=== PATIENT | female | born 1950 | race Two or more races ===

== ENCOUNTER 2023-09-29 17:01 | Emergency (ER) | payer MEDICARE, MEDICAID, SELFPAY ==
[2023-09-29] VITALS (21 sets, daily range): BP systolic 150–166; BP diastolic 88–98; PULSE 58–78; RESP 9–21; TEMP 36.9; O2SAT 91–98; BMI 31.2
--- NOTE | 2023-09-29 17:12 | ECG_ITS ---
[facility] Test Date: 2023-09-29 Pat Name: AKUA SPARROW Department: Room: - Gender: Female Guest Services: : 1950 Requested By: Nelida Gonzales Order Number: [id number] Reading MD: LA LIZAMA Measurements Intervals [place] Rate: 72 P: 60 TX: 156 QRS: -30 QRSD: 82 T: 55 QT: 400 QTc: 425 Interpretive Statements 1100 Sinus rhythm with occasional ectopic premature complexes (Unreliable analysis due to noise) 7202 Moderate left axis deviation 0102 ARTIFACT PRESENT 9140 abnormal rhythm ECG Compared to ECG 11/17/2020 20:23:35 Left-axis deviation now present Electronically Signed On 09-30-2023 6:51:40 EST by LA LIZAMA
--- NOTE | 2023-09-29 17:23 | ED.GENADUL1 ---
HPI - General Adult General Chief complaint: Chest Pain Stated complaint: Chest pain Time Seen by Provider: 09/29/23 17:04 Source: patient Mode of arrival: walk-in Limitations: language barrier History of Present Illness HPI narrative: Patient is a 73-year-old female who presents to the emergency department with her son for the evaluation of multiple complaints. Patient states for the last week she has had a sense of indigestion and epigastric discomfort. She states in the last 3 to 4 days she has had pressure in her chest, left arm pain, cough, weakness, shortness of breath. She has had no vomiting or diarrhea. No objective fevers. She has no sputum production. No medications taken prior to arrival for symptoms. She did take a baby aspirin today. She denies any history of heart attack, stroke. Related Data Home Medications Medication Instructions Recorded Confirmed amlodipine 2.5 mg tablet 2.5 mg PO DAILY 09/29/23 09/29/23 atorvastatin 40 mg tablet 40 mg PO DAILY 09/29/23 09/29/23 famotidine 20 mg tablet 20 mg PO DAILY 09/29/23 09/29/23 levothyroxine 25 mcg tablet 25 mcg PO DAILY 09/29/23 09/29/23 metformin 500 mg tablet 500 mg PO DAILY 09/29/23 09/29/23 tizanidine 4 mg tablet 4 mg PO Q12H PRN pain 09/29/23 09/29/23 Previous Rx's Medication Instructions Recorded levofloxacin 750 mg tablet 750 mg PO DAILY 5 days #5 tabs 09/29/23 ondansetron 4 mg disintegrating 4 mg PO Q6H PRN nausea and 09/29/23 tablet vomiting #12 tabs sucralfate 1 gram tablet (Carafate) 1 g PO Q6H PRN abdominal pain #12 09/29/23 tabs Allergies Allergy/AdvReac Type Severity Reaction Status Date / Time No Known Drug Allergies Allergy Verified 09/29/23 17:06 Review of Systems ROS Constitutional Denies: fever or chills Eyes Denies: change in vision Ears, nose, mouth, and throat Denies: throat pain or nasal congestion Cardiovascular Reports: chest pain Respiratory Reports: shortness of breath and cough Gastrointestinal Reports: abdominal pain and nausea; Denies: vomiting or diarrhea Genitourinary Denies: painful urination Musculoskeletal Denies: back pain Integumentary/Breast Denies: rash Neurological Denies: headache PFSH PFSH Social History Smoking status: Never smoker Exam Narrative Exam Narrative: Gen.: Awake, alert, in no distress Head: Normocephalic, atraumatic ENT: Moist mucous membranes Respiratory: No respiratory distress, lungs clear bilaterally Cardio: Regular rate and rhythm Gastrointestinal: Abdomen is soft, nondistended and nontender to palpation Extremities: Moves extremities equally, no pedal edema Psych: Normal mood and affect Neuro: No focal neuro deficit Skin: Warm, dry, intact Constitutional Vital Signs, click to edit/add: Last Vital Signs Temp 98.4 F 09/29/23 17:08 Pulse 58 L 09/29/23 20:18 Resp 14 09/29/23 20:18 BP 166/88 H 09/29/23 18:54 Pulse Ox 95 09/29/23 20:18 O2 Del Method Room Air 09/29/23 20:18 Course Vital Signs Vital signs: Vital Signs Temperature 98.4 F 09/29/23 17:08 Pulse Rate 75 09/29/23 17:08 Respiratory Rate 16 09/29/23 17:08 Blood Pressure 150/98 H 09/29/23 17:08 Pulse Oximetry 97 09/29/23 17:08 Oxygen Delivery Method Room Air 09/29/23 17:08 Temperature 98.4 F 09/29/23 17:08 Pulse Rate 58 L 09/29/23 20:18 Respiratory Rate 14 09/29/23 20:18 Blood Pressure 166/88 H 09/29/23 18:54 Pulse Oximetry 95 09/29/23 20:18 Oxygen Delivery Method Room Air 09/29/23 20:18 Medical Decision Making [facility] Narrative Medical decision making narrative: Patient treated with IV fluids, aspirin, GI cocktail. She has no adriana chest pain in the ER and complains only of epigastric discomfort and minimal chest pressure. She maintains normal vital signs in the ER, chest x-ray shows mild bibasilar infiltrates compatible with pneumonia. Patient will be treated for community-acquired pneumonia. Suspect diaphragm irritation causing some of her discomfort. She was given a GI cocktail in the ER. She had no episodes of emesis, no difficulty breathing. Patient has had epigastric discomfort for 1 week with 3 to 4 days of chest pressure. She has no EKG changes and 2 normal troponins. She is comfortable with outpatient management of mild pneumonia. Son at bedside is also comfortable with this treatment. Medical Records Medical records reviewed: Yes I reviewed the patient's medical records Lab Data Lab results reviewed: Yes I reviewed the patient's lab results Labs: Lab Results 09/29/23 09/29/23 09/29/23 Range/Units 17:18 17:26 17:30 WBC 6.3 (4.0-11.0) 10^3/uL RBC 4.50 (4.20-5.40) 10^6/uL Hgb 13.3 (12.0-16.0) g/dL Hct 40.4 (36.0-48.0) % MCV 89.8 (81.0-99.0) fL MCH 29.6 (26.7-34.0) pg MCHC 32.9 (29.9-35.2) g/dL RDW 12.9 (11.0-15.0) % Plt Count 207 (150-450) 10^3/uL MPV 11.1 (9.5-13.5) fL Neut % (Auto) 52.4 (43.0-75.0) % Lymph % (Auto) 39.5 (20.5-60.0) % [place] % (Auto) 6.3 (1.7-12.0) % Eos % (Auto) 1.3 (0.9-7.0) % Baso % (Auto) 0.3 (0.2-2.0) % Neut # (Auto) 3.3 (1.4-6.5) 10^3/uL Lymph # (Auto) 2.5 (1.2-3.8) 10^3/uL [place] # (Auto) 0.4 (0.3-0.8) 10^3/uL Eos # (Auto) 0.1 (0.0-0.7) 10^3/uL Baso # (Auto) 0.0 (0.0-0.1) 10^3/uL Abs Immat Gran (auto) 0.01 (0.00-0.03) 10^3/uL Imm/Tot Granulo (auto) 0.2 (0.0-0.5) % PT 10.7 (9.0-11.6) sec INR 1.01 VBG pH 7.455 H (7.330-7.430) VBG pCO2 38.6 L (40.0-52.0) mmHg Sodium 139 (136-145) mmol/L Potassium 3.4 L (3.5-5.1) mmol/L Chloride 104 (98-107) mmol/L Carbon Dioxide 27.1 (21.0-32.0) mmol/L Anion Gap 11.3 BUN 10.0 (7.0-18.0) mg/dL Creatinine 0.73 (0.55-1.02) mg/dL Est GFR ( Amer) >60 (>=60) Est GFR (Non-Af Amer) >60 (>=60) BUN/Creatinine Ratio 13.7 Glucose 183 H (74-106) mg/dL Lactate 1.4 (0.4-2.0) mmol/L Calcium 9.8 (8.5-10.1) mg/dL Total Bilirubin 0.3 (0.2-1.0) mg/dL AST 22 (15-37) U/L ALT 45 (14-59) U/L Alkaline Phosphatase 126 H (46-116) U/L Troponin I High Sens 5.7 (4.0-51.3) pg/mL NT-Pro-B Natriuret Pep 28.0 (<=900.0) pg/mL Total Protein 8.1 (6.4-8.2) g/dL Albumin 4.1 (3.4-5.0) g/dL Globulin 4.0 g/dL Albumin/Globulin Ratio 1.0 Lipase 23.0 (16.0-77.0) U/L Adenovirus (PCR) Not detected (NOT DETECTE) C. pneumoniae DNA (PCR) Not detected (NOT DETECTE) Coronavirus Type OC43 Not detected (NOT DETECTE) Coronavirus Type HKU1 Not detected (NOT DETECTE) Coronavirus Type 229E Not detected (NOT DETECTE) Coronavirus Type NL63 Not detected (NOT DETECTE) Human Metapneumovir PCR Not detected (NOT DETECTE) M. pneumoniae (PCR) Not detected (NOT DETECTE) Parainfluenza PCR Not detected (NOT DETECTE) Parainfluenza 2 (PCR) Not detected (NOT DETECTE) Parainfluenza 3 (PCR) Not detected (NOT DETECTE) Parainfluenza 4 (PCR) Not detected (NOT DETECTE) RSV (RT-PCR) Not detected (NOT DETECTE) Entero/Rhino (PCR) Not detected (NOT DETECTE) SARS-CoV-2 (PCR) Not detected (NOT DETECTE) Bordetella pertussis (PCR) Not detected (NOT DETECTE) B parapertussis DNA PCR Not detected (NOT DETECTE) Influenza Type A (PCR) Not detected (NOT DETECTE) Influenza Type B (PCR) Not detected (NOT DETECTE) 09/29/23 Range/Units 19:24 WBC (4.0-11.0) 10^3/uL RBC (4.20-5.40) 10^6/uL Hgb (12.0-16.0) g/dL Hct (36.0-48.0) % MCV (81.0-99.0) fL MCH (26.7-34.0) pg MCHC (29.9-35.2) g/dL RDW (11.0-15.0) % Plt Count (150-450) 10^3/uL MPV (9.5-13.5) fL Neut % (Auto) (43.0-75.0) % Lymph % (Auto) (20.5-60.0) % [place] % (Auto) (1.7-12.0) % Eos % (Auto) (0.9-7.0) % Baso % (Auto) (0.2-2.0) % Neut # (Auto) (1.4-6.5) 10^3/uL Lymph # (Auto) (1.2-3.8) 10^3/uL [place] # (Auto) (0.3-0.8) 10^3/uL Eos # (Auto) (0.0-0.7) 10^3/uL Baso # (Auto) (0.0-0.1) 10^3/uL Abs Immat Gran (auto) (0.00-0.03) 10^3/uL Imm/Tot Granulo (auto) (0.0-0.5) % PT (9.0-11.6) sec INR VBG pH (7.330-7.430) VBG pCO2 (40.0-52.0) mmHg Sodium (136-145) mmol/L Potassium (3.5-5.1) mmol/L Chloride (98-107) mmol/L Carbon Dioxide (21.0-32.0) mmol/L Anion Gap BUN (7.0-18.0) mg/dL Creatinine (0.55-1.02) mg/dL Est GFR ( Amer) (>=60) Est GFR (Non-Af Amer) (>=60) BUN/Creatinine Ratio Glucose (74-106) mg/dL Lactate (0.4-2.0) mmol/L Calcium (8.5-10.1) mg/dL Total Bilirubin (0.2-1.0) mg/dL AST (15-37) U/L ALT (14-59) U/L Alkaline Phosphatase (46-116) U/L Troponin I High Sens 6.5 (4.0-51.3) pg/mL NT-Pro-B Natriuret Pep (<=900.0) pg/mL Total Protein (6.4-8.2) g/dL Albumin (3.4-5.0) g/dL Globulin g/dL Albumin/Globulin Ratio Lipase (16.0-77.0) U/L Adenovirus (PCR) (NOT DETECTE) C. pneumoniae DNA (PCR) (NOT DETECTE) Coronavirus Type OC43 (NOT DETECTE) Coronavirus Type HKU1 (NOT DETECTE) Coronavirus Type 229E (NOT DETECTE) Coronavirus Type NL63 (NOT DETECTE) Human Metapneumovir PCR (NOT DETECTE) M. pneumoniae (PCR) (NOT DETECTE) Parainfluenza PCR (NOT DETECTE) Parainfluenza 2 (PCR) (NOT DETECTE) Parainfluenza 3 (PCR) (NOT DETECTE) Parainfluenza 4 (PCR) (NOT DETECTE) RSV (RT-PCR) (NOT DETECTE) Entero/Rhino (PCR) (NOT DETECTE) SARS-CoV-2 (PCR) (NOT DETECTE) Bordetella pertussis (PCR) (NOT DETECTE) B parapertussis DNA PCR (NOT DETECTE) Influenza Type A (PCR) (NOT DETECTE) Influenza Type B (PCR) (NOT DETECTE) Imaging Data Chest x-ray: Radiologist's impression: ITS Impressions Chest X-Ray 09/29/23 17:55 IMPRESSION: Bibasilar opacification compatible with mild pneumonia in the setting of cough. Electronically authenticated by: JERRY SALINAS Date: 09/29/2023 18:16 ECG Data Attestation: I personally reviewed and interpreted this ECG as follows: (Normal sinus rhythm at a rate of 72, occasional PVC, no acute ST elevation or ectopy. Artifact noted. EKG reviewed by attending physician) Discharge Plan Discharge Chief Complaint: Chest Pain Clinical Impression: Weakness, Pneumonia Patient Disposition: Home, Self-Care Time of Disposition Decision: 20:04 Condition: Good Prescriptions / Home Meds: New levofloxacin 750 mg tablet 750 mg PO DAILY 5 Days Qty: 5 0RF sucralfate [Carafate] 1 gram tablet 1 g PO Q6H PRN (Reason: abdominal pain) Qty: 12 0RF ondansetron 4 mg tablet,disintegrating 4 mg PO Q6H PRN (Reason: nausea and vomiting) Qty: 12 0RF No Action amlodipine 2.5 mg tablet 2.5 mg PO DAILY atorvastatin 40 mg tablet 40 mg PO DAILY famotidine 20 mg tablet 20 mg PO DAILY levothyroxine 25 mcg tablet 25 mcg PO DAILY metformin 500 mg tablet 500 mg PO DAILY tizanidine 4 mg tablet 4 mg PO Q12H PRN (Reason: pain) Print Language: Cymro Instructions: Weakness (ED), Pneumonia (ED) Stand Alone Forms: Portal Instructions Referrals: DENI LUU [Primary Care Provider] - 1 week Discharge Date/Time: 09/29/23 20:20
[2023-09-29 17:38] LABS: PCO2 VBG 38.6 mmHg (40.0-52.0); pH VBG 7.455 (7.330-7.430)
[2023-09-29] MEDS: 0.9 % SODIUM CHLORIDE 1,000 ML 1000 ML IV (17:39)
[2023-09-29] MEDS: ASPIRIN 81 MG TAB.CHEW 162 MG PO (17:40)
[2023-09-29] MEDS: lidocaine HCL 15 ML, MAG HYDROX/ALUMINUM HYD/SIMETH 30 ML, HYOSCYAMINE SULFATE 0.25 MG PO (17:40)
[2023-09-29 17:41] LABS: Basophils Percent Auto 0.3 % (0.2-2.0); Eosinophils Absolute Auto 0.1 10^3/uL (0.0-0.7); Eosinophils Percent Auto 1.3 % (0.9-7.0); Hematocrit 40.4 % (36.0-48.0); Hemoglobin 13.3 g/dL (12.0-16.0); Immature Granulocytes Abs Auto 0.01 10^3/uL (0.00-0.03); Immature Granulocytes Pct Auto 0.2 % (0.0-0.5); Lymphocytes Absolute Auto 2.5 10^3/uL (1.2-3.8); Lymphocytes Percent Auto 39.5 % (20.5-60.0); Mean Corpuscular HGB Conc 32.9 g/dL (29.9-35.2); Mean Corpuscular Hemoglobin 29.6 pg (26.7-34.0); Mean Corpuscular Volume 89.8 fL (81.0-99.0); Mean Platelet Volume 11.1 fL (9.5-13.5); Monocytes Absolute Auto 0.4 10^3/uL (0.3-0.8); Monocytes Percent Auto 6.3 % (1.7-12.0); Neutrophils Absolute Auto 3.3 10^3/uL (1.4-6.5); Neutrophils Percent Auto 52.4 % (43.0-75.0); Platelet Count 207 10^3/uL (150-450); Red Cell Distribution Width 12.9 % (11.0-15.0); White Blood Count 6.3 10^3/uL (4.0-11.0)
[2023-09-29 17:41] LABS: Adenovirus NOT DETECTED (NOT DETECTE); Bordetella parapertussis NOT DETECTED (NOT DETECTE); Coronavirus 229E NOT DETECTED (NOT DETECTE); Coronavirus HKU1 NOT DETECTED (NOT DETECTE); Coronavirus NL63 NOT DETECTED (NOT DETECTE); Coronavirus OC43 NOT DETECTED (NOT DETECTE); Human Metapneumovirus NOT DETECTED (NOT DETECTE); Human Rhinovirus/Enterovirus NOT DETECTED (NOT DETECTE); Influenza A NOT DETECTED (NOT DETECTE); Influenza B NOT DETECTED (NOT DETECTE); Mycoplasma pneumoniae NOT DETECTED (NOT DETECTE); Parainfluenza Virus 1 NOT DETECTED (NOT DETECTE); Parainfluenza Virus 2 NOT DETECTED (NOT DETECTE); Parainfluenza Virus 3 NOT DETECTED (NOT DETECTE); Parainfluenza Virus 4 NOT DETECTED (NOT DETECTE); Respiratory Syncytial Virus NOT DETECTED (NOT DETECTE); SARS-CoV-2 NOT DETECTED (NOT DETECTE)
[2023-09-29 17:55] LABS: INR 1.01; Prothrombin Time 10.7 sec (9.0-11.6)
--- NOTE | 2023-09-29 17:55 | XR_ITS ---
The [address] [address] Patient Name: AKUA SPARROW MRN: [id number] date: 1950 Sex: F Assigned Patient Location: ER Current Patient Location: ER Accession/Order Number: [id number] Exam Date: 09/29/2023 17:50 Report Date: 09/29/2023 18:16 At the request of: MARAH HARPER Procedure: XR chest 1V EXAMINATION: XR chest 1V 09/29/2023 3:15 PM PST HISTORY: Cough TECHNIQUE: Single frontal view of the chest acquired. COMPARISONS: Chest x-ray 10/11/2018 FINDINGS: Lines/tubes/other: None. Heart and mediastinum: The cardiac silhouette is within normal limits for size. Bones: No acute osseous abnormality. Lungs: Mild bibasilar patchy opacification, new. No pulmonary edema. Pleura: There is no significant pleural effusion or pneumothorax. Other: None. XR/XR chest 1V IMPRESSION: Bibasilar opacification compatible with mild pneumonia in the setting of cough. Electronically authenticated by: JERRY SALINAS Date: 09/29/2023 18:16
[2023-09-29 18:03] LABS: Lactate/Lactic Acid 1.4 mmol/L (0.4-2.0)
[2023-09-29 18:06] LABS: Alanine Aminotransferase 45 U/L (14-59); Albumin Level 4.1 g/dL (3.4-5.0); Alkaline Phosphatase 126 U/L (46-116); Anion Gap 11.3; Aspartate Amino Transferase 22 U/L (15-37); BUN Creatinine Ratio 13.7; Bilirubin Total 0.3 mg/dL (0.2-1.0); Calcium 9.8 mg/dL (8.5-10.1); Carbon Dioxide 27.1 mmol/L (21.0-32.0); Chloride 104 mmol/L (98-107); Estimated GFR (African America >60 (>=60); Estimated GFR (Non-African Ame >60 (>=60); Glucose 183 mg/dL (74-106); Potassium 3.4 mmol/L (3.5-5.1); Sodium 139 mmol/L (136-145); Total Protein 8.1 g/dL (6.4-8.2); Troponin I High Sensitivity 5.7 pg/mL (4.0-51.3)
[2023-09-29] MEDS: LEVOFLOXACIN 750 MG TABLET PO (19:20)
[2023-09-29 19:54] LABS: Troponin I High Sensitivity 6.5 pg/mL (4.0-51.3)
== END 2023-09-29 20:20 | disposition home or self-care (01) ==
PROVIDERS: Physician Assistant; Emergency Provider Emergency Medicine; PCP Family Medicine
DX: J18.9 Pneumonia, unspecified organism (principal); R53.1 Weakness; R06.02 Shortness of breath; Z79.899 Other long term (current) drug therapy; Z79.890 Hormone replacement therapy; Z79.84 Long term (current) use of oral hypoglycemic drugs; Z20.822 Contact with and (suspected) exposure to COVID-19
CPT/HCPCS: 0202U; 36415; 71045; 80053; 82800; 83605; 83690; 83880; 84484; 85025; 85610; 87040; 93005; 99285